=== PATIENT | female | born 1955 | race Two or more races ===

== ENCOUNTER → 2020-02-13 | Outpatient (CLI) | payer OTHER, MEDICARE | END | disposition home or self-care (01) | LOC: PETCFH 10:11 | PROVIDERS: ATTEND Specialist | DX: C83.31 Diffuse large B-cell lymphoma, lymph nodes of head, face, and neck (principal); D47.2 Monoclonal gammopathy; R59.9 Enlarged lymph nodes, unspecified | CPT/HCPCS: 78815; A9552 ==

== ENCOUNTER → 2020-04-19 | Outpatient (CLI) | payer MEDICARE ==
[~2020-04-19] MED LIST: AMLO-150 PO; FENO145T19 PO; HYDR200T72 PO; VALS1TAB30 PO; [UNRECOGNIZED DRUG - CODE] PO
[2020-04-19 14:28] LABS: ANION GAP 6 mmol/L (5-15); CALCIUM 9.3 mg/dL (8.5-10.1); CHLORIDE 107 mmol/L (98-107)
[2020-04-19 14:32] LABS: ALANINE AMINOTRANSFERASE 32 U/L (12-78); ALKALINE PHOSPHATASE 55 U/L (45-117); BILIRUBIN,TOTAL 0.3 mg/dL (0.2-1.0); CREATININE 0.83 mg/dL (0.55-1.02); TOTAL PROTEIN 7.9 g/dL (6.4-8.2)
== END | disposition home or self-care (01) ==
LOC: STAR 12:39
PROVIDERS: ATTEND Surgery
DX: Z01.812 Encounter for preprocedural laboratory examination (principal); Z20.822 Contact with and (suspected) exposure to COVID-19; I51.7 Cardiomegaly
CPT/HCPCS: 80053; 87635; 93005